=== PATIENT | male | born 1985 | race Caucasian/White ===

== ENCOUNTER 2021-08-07 10:38 | Observation (INO) | payer SELFPAY ==
[2021-08-07 11:15] LABS: #Basophils 0.1 thou/uL (0.0-0.2); #Eosinphils 0.7 thou/uL (0.0-0.7); #Lymphocytes 2.5 thou/uL (1.20-3.40); #Monocytes 1.4 thou/uL (0.11-0.59); #Neutrophils 8.5 thou/uL (1.40-6.50); %Basophils 0.7 % (0.0-1.0); %Eosinophils 5.3 % (0.0-10.0); %Lymphocytes 18.7 % (21.0-51.0); %Monocytes 10.5 % (0.0-10.0); %Neutrophils 64.7 % (42.0-75.0); Hemoglobin 16.2 g/dL (14.0-18.0); Mean Corpuscular HGB CONC 33.1 g/dL (32.0-36.0); Mean Corpuscular Hemoglobin 31.2 pg (27.0-31.0); Mean Corpuscular Volume 94.4 fL (78.0-98.0); Mean Platelet Volume 7.3 fL (7.4-10.4); Platelet Count 308 thou/uL (130-400); RBC Distribution Width 12.2 % (11.5-14.5); Red Blood Cell (RBC) Count 5.19 mill/uL (4.70-6.10); White Blood Cell (WBC) Count 13.1 thou/uL (4.8-10.8)
[2021-08-07 11:41] LABS: ALT (SGPT) 38 U/L (8-55); AST (SGOT) 18 U/L (5-34); Albumin 3.9 g/dL (3.5-5.0); Alkaline Phosphatase 103 U/L (40-110); Anion Gap 12 mmol/L (10-20); BUN (Urea Nitrogen) 9 mg/dL (8.9-20.6); Bilirubin, Total 0.6 mg/dL (0.2-1.2); Calc. Creatinine Clearance 0 mL/min (70-130); Calcium 9.7 mg/dL (7.8-10.44); Carbon Dioxide 29 mmol/L (22-29); Chloride 102 mmol/L (98-107); Globulin 4.3 g/dL (2.4-3.5); Glucose 99 mg/dL (70-105); Lipase 83 U/L (8-78); Potassium 3.4 mmol/L (3.5-5.1); Protein, Total 8.2 g/dL (6.0-8.3); Sodium 140 mmol/L (136-145)
[2021-08-07 12:22] LABS: SARS-CoV-2 NAA Rapid Test Not Detected (NotDetected)
[2021-08-07] MEDS ORDERED: HYDROmorphone 0.5 MG/0.5 ML SYRINGE ONE (12:48)
[2021-08-07] MEDS ORDERED: Piperacillin/Tazobactam 4.5 GM VIAL ONE (12:52)
[2021-08-07] MEDS ORDERED: Fentanyl 100 MCG/2 ML VIAL ONE ×2 (13:39→18:20)
[2021-08-07] MEDS ORDERED: Bupivacaine 0.25% HCL 30 ML VIAL ONE (14:26)
[2021-08-07] MEDS ORDERED: EPINEPHrine 1 MG/ML AMP ONE (14:26)
[2021-08-07] MEDS ORDERED: Ketorolac Tromethamine 30 MG/ML VIAL IVP PRN (14:42)
[2021-08-07] MEDS ORDERED: Ondansetron HCl/PF 4 MG/2 ML Vial IVP PRN ×2 (14:42→18:30)
[2021-08-07] MEDS ORDERED: Promethazine HCl 25 MG/ML VIAL IM PRN (14:42)
[2021-08-07] MEDS ORDERED: Meperidine HCl/PF 25 MG/ML VIAL SLOW IVP PRN (14:42)
[2021-08-07] MEDS ORDERED: Promethazine HCl 25 MG/ML VIAL IVPB PRN (14:42)
[2021-08-07] MEDS ORDERED: Midazolam HCl 2 mg/2 ml Vial ONE (14:52)
[2021-08-07] MEDS ORDERED: Dexamethasone 20 MG/5 ML VIAL ONE (15:04)
[2021-08-07] MEDS ORDERED: Succinylcholine 200 MG/10 ml SYRINGE FS ONE (15:04)
[2021-08-07] MEDS ORDERED: Rocuronium Bromide 10 MG/ML (10ML VIAL) ONE (15:04)
[2021-08-07] MEDS ORDERED: Glycopyrrolate 0.2 MG/ML 5 ML SYRINGE ONE (15:04)
[2021-08-07] MEDS ORDERED: Lidocaine 1% PF 5 ML VIAL ONE (15:04)
[2021-08-07] MEDS ORDERED: Ondansetron PF 4 MG/2 ML Vial ONE (15:04)
[2021-08-07] MEDS ORDERED: Ketorolac Tromethamine 30 MG/ML VIAL ONE (15:04)
[2021-08-07] MEDS ORDERED: PROPOFOL 200 MG/20 ML VIAL ONE (15:04)
[2021-08-07] MEDS ORDERED: Esmolol 100 MG/10 ML VIAL ONE (15:04)
[2021-08-07] MEDS ORDERED: Metoprolol Tartrate 5 MG/5 ML VIAL ONE (18:04)
[2021-08-07] MEDS ORDERED: Non-Formulary Medication 1 EACH PO PRN (18:18)
[2021-08-07] MEDS ORDERED: Metoprolol Tartrate 5 MG/5 ML VIAL IVP PRN (18:19)
[2021-08-07] MEDS ORDERED: hydrALAZINE 20 MG/ML VIAL SLOW IVP PRN (18:26)
[2021-08-07] MEDS ORDERED: Dextrose 50% Abboject 50 ML SYRINGE SLOW IVP PRN (18:26)
[2021-08-07] MEDS ORDERED: Dextrose 5% in Water 1,000 ML IV PRN (18:26)
[2021-08-07] MEDS ORDERED: Ondansetron PF 4 MG/2 ML Vial IVP PRN (18:26)
[2021-08-07] MEDS ORDERED: Ondansetron ODT 4 MG TAB PO PRN (18:26)
[2021-08-07] MEDS ORDERED: traMADol HCl 50 MG TAB PO PRN ×2 (18:26)
[2021-08-07] MEDS ORDERED: Promethazine HCl 25 MG/ML VIAL IM/IV PRN (18:30)
[2021-08-07 19:43] VITALS: BMI 44.3
[2021-08-07] MEDS: Acetaminophen 500 MG TAB PO SCH (19:50)
[2021-08-07] MEDS ORDERED: FLU VACC QS2021-22(6MOS UP)/PF 60 MCG/0.5 ML SYRINGE IM ONE (20:30)
[2021-08-07] MEDS: Ibuprofen 800 MG TAB PO SCH (21:35)
[2021-08-07] MEDS: Famotidine 20 MG TAB PO SCH (21:35)
[2021-08-08] MEDS: Acetaminophen 500 MG TAB PO SCH ×3 (00:29→12:11)
[2021-08-08] MEDS: Ibuprofen 800 MG TAB PO SCH (08:46)
[2021-08-08] MEDS: Famotidine 20 MG TAB PO SCH (09:16)
[2021-08-08 12:32] VITALS: BP 142/82; TEMP 97.8
== END 2021-08-08 13:11 | disposition home or self-care (01) ==
LOC: ERS 10:38 → INTOOBSV 13:00 → T4-A 13:00 → SURG A 14:15
PROVIDERS: ADMIT Surgery; ATTEND Surgery
PROC: 0FT44ZZ Resection of Gallbladder, Percutaneous Endoscopic Approach (ICD-10-PCS; principal; 2021-08-07)
PROC: 0WQF0ZZ Repair Abdominal Wall, Open Approach (ICD-10-PCS; 2021-08-07)
DX: K80.12 Calculus of gallbladder with acute and chronic cholecystitis without obstruction (principal); K42.9 Umbilical hernia without obstruction or gangrene; K66.0 Peritoneal adhesions (postprocedural) (postinfection); I10 Essential (primary) hypertension; E66.01 Morbid (severe) obesity due to excess calories; Z68.41 Body mass index [BMI] 40.0-44.9, adult; Z87.891 Personal history of nicotine dependence; Z79.899 Other long term (current) drug therapy
CPT/HCPCS: 76705; 80053; 83690; 85025; 88302; 88304; 90471; 90686; 96365; 96375; G0008; G0378; J0171; J1100; J1170; J1885; J2250; J2405; J2543; J2704; J3010; S0020; U0002